=== PATIENT | male | born 1945 ===

== ENCOUNTER 2018-09-06 21:45 | Emergency (ER) | payer MEDICARE, MEDICAID ==
[2018-09-06 21:45] VITALS: BMI 27.2
[2018-09-06 21:54] VITALS: RESP 18
[2018-09-06 22:27] VITALS: BP 115/72; PULSE 76; TEMP 98.4; O2SAT 99
[2018-09-06] MEDS ORDERED: Albuterol-Ipratrop 3 mg / 0.5 (3 ml) UD INH STA (23:42)
[2018-09-06] MEDS ORDERED: Albuterol-Ipratrop 3 mg / 0.5 (3 ml) UD ONE (23:49)
[2018-09-07 00:41] LABS: BASO # 0.1 K/uL (0.0-0.2); BASO % 1.1 % (0.0-2.0); EOS # 0.6 K/uL (0.0-0.7); EOS % 7.4 % (0.0-4.0); HEMOGLOBIN 13.5 g/dL (12.0-18.0); LYMPH # 2.3 K/uL (1.0-4.3); MEAN CELL VOLUME 92.6 fl (80.0-94.0); MEAN CORPUSCULAR HEMOGLOBIN 30.9 pg (27.0-31.0); MEAN CORPUSCULAR HGB CONC 33.4 g/dL (33.0-37.0); MONO # 1.1 K/uL (0.0-0.8); MONO % 12.4 % (0.0-10.0); NEUT # 4.6 K/uL (1.8-7.0); NEUT % 53.1 % (50.0-75.0); NRBC % 0.1 % (0.0-0.0); RBC 4.36 Mil/uL (4.40-5.90); WHITE BLOOD COUNT 8.7 K/uL (4.8-10.8)
[2018-09-07 00:50] LABS: ALB/GLOB RATIO 1.2 (1.0-2.1); ALBUMIN 3.7 g/dL (3.5-5.0); ALT/SGPT 25 U/L (21-72); AST/SGOT 20 U/L (17-59); BLOOD UREA NITROGEN 19 mg/dl (9-20); CALCIUM 10.3 mg/dL (8.4-10.2); GFR NON-AFRICAN AMERICAN > 60
[2018-09-07] MEDS ORDERED: Albuterol-Ipratrop 3 mg / 0.5 (3 ml) UD ONE (00:52)
[2018-09-07 00:56] LABS: INR 1.1; PROTHROMBIN TIME 12.8 Seconds (9.8-13.1)
[2018-09-07 00:59] LABS: PARTIAL THROMBOPLASTIN TIME 30.8 Seconds (25.6-37.1)
[2018-09-07 01:01] LABS: B-TYPE NATRIURETIC PEPTIDE 80.2 pg/ml (0-900)
--- NOTE | 2018-09-07 02:19 | ED PDOC ---
HPI: CCC, URI, Sore Throat Time Seen by Provider: 09/06/18 22:56 Chief Complaint (Nursing): Cough, Cold, Congestion Chief Complaint (Provider): Cough, Cold, Congestion History Per: Patient History/Exam Limitations: no limitations Onset/Duration Of Symptoms: Persistent (x1 week) Current Symptoms Are (Timing): Still Present Additional Complaint(s): 72 year old male with pmHx of HTN and COPD, presents to ED with complaints of cough, productive green phlegm, congestion, and shortness of breath that becomes exacerbated at night for 1 week. He denies any fever or chills. Of note, patient smokes approximately 1-2 packs of cigarettes daily. PCP: none provided Pulm: Dr. Adal Hull Past Medical History Reviewed: Historical Data, Nursing Documentation, Vital Signs Vital Signs: Last Vital Signs Temp 98.4 F 09/06/18 21:51 Pulse 76 09/06/18 21:51 Resp 18 09/06/18 21:51 BP 115/72 09/06/18 21:51 Pulse Ox 99 09/06/18 21:51 - Medical History PMH: COPD, HTN Denies: Anxiety, Bipolar Disorder, Depression, Paranoia, Post Traumatic Stress Disorder, Chronic Kidney Disease, Schizophrenia - Surgical History Surgical History: Cholecystectomy - Family History Family History: States: Unknown Family Hx - Social History Current smoker - smoking cessation education provided: Yes (1-2 packs/daily) - Home Medications Home Medications: Ambulatory Orders Medication Instructions Recorded Meclizine HCl [Antivert/25] 25 mg PO Q8 #12 tab 06/22/14 Naproxen [Naprosyn] 500 mg PO Q12H #20 tab 06/22/14 Atorvastatin [Lipitor] 20 mg PO DAILY 06/23/14 Fluticasone/Salmeterol 250/50 1 puff IH DAILY 06/23/14 [Advair Diskus 250/50] Lisinopril 20 mg PO DAILY 06/23/14 Mometasone Furoate [Nasonex] 0.05 mg NS DAILY 06/23/14 Azithromycin [Zithromax] 250 mg PO DAILY #4 cap 06/24/14 Naproxen [Naprosyn] 500 mg PO BID #20 tab 06/24/14 Promethazine Hydrochloride 6.25 mg PO Q4 #120 ml 06/24/14 [Promethazine] Naproxen 500 mg PO Q12 #20 tab 10/02/14 Albuterol Sulfate [Proair Hfa] 0.09 mg IH Q6 PRN #1 inh 09/07/18 Benzonatate [Tessalon Perle] 100 mg PO TID PRN #15 capsule 09/07/18 Methylprednisolone [Medrol Dosepak] 4 mg PO ASDIR #1 pkg 09/07/18 - Allergies Allergies/Adverse Reactions: Allergies Allergy/AdvReac Type Severity Reaction Status Date / Time Penicillins Allergy RASH Verified 09/06/18 21:51 Review of Systems ROS Statement: Except As Marked, All Systems Reviewed And Found Negative Constitutional: Negative for: Fever, Chills ENT: Positive for: Nose Congestion Respiratory: Positive for: Cough, Shortness of Breath, Sputum (green) Physical Exam - Reviewed Nursing Documentation Reviewed: Yes Vital Signs Reviewed: Yes - Physical Exam Appears: Positive for: No Acute Distress Head Exam: Positive for: ATRAUMATIC, NORMAL INSPECTION, NORMOCEPHALIC Skin: Positive for: Normal Color Eye Exam: Positive for: Normal appearance, EOMI, PERRL ENT: Positive for: Normal ENT Inspection Neck: Positive for: Normal Cardiovascular/Chest: Positive for: Regular Rate, Rhythm Respiratory: Positive for: Wheezing (expiratory bilaterally). Negative for: Respiratory Distress Gastrointestinal/Abdominal: Positive for: Normal Exam, Soft. Negative for: Tenderness Extremity: Positive for: Normal ROM (upper/lower). Negative for: Pedal Edema (bilateral), Calf Tenderness (bilateral) Neurologic/Psych: Positive for: Alert, Oriented. Negative for: Motor/Sensory Deficits - Laboratory Results Result Diagrams: 09/07/18 00:25 09/07/18 00:25 - ECG O2 Sat by Pulse Oximetry: 99 (RA) Pulse Ox Interpretation: Normal Medical Decision Making Medical Decision Making: Initial Impression: 72 year old male with COPD exacerbation. Initial Plan: * Labs * CXR * Duoneb 9ml INH * Solu-medrol 125mg IVP * Blood culture * Influenza AB Time: 108 --Labs reviewed: no significant clinical abnormality including (-) influenza. CXR: (-) active disease. Upon provider reevaluation, patient is medically stable, reports improvement in symptoms, and requires no further treatment in the ED at this time. Patient will be discharged home with Rx for Proair HFA, Te ssalon Perle, and Medrol dosepak. Counseling was provided and all questions were answered regarding diagnosis. There is agreement to discharge plan. Return if symptoms persist or worsen. Clinical Impression: Bronchitis Scribe Attestation: Documented by Chikis Torres, acting as a scribe for Berlin Spicer MD. Provider Scribe Attestation: All medical record entries made by the Scribe were at my direction and personally dictated by me. I have reviewed the chart and agree that the record accurately reflects my personal performance of the history, physical exam, medical decision making, and the department course for this patient. I have also personally directed, reviewed, and agree with the discharge instructions and disposition. Disposition - Clinical Impression Clinical Impression: Bronchitis - Patient ED Disposition Is Patient to be Admitted: No Counseled Patient/Family Regarding: Studies Performed, Diagnosis, Rx Given - Disposition Disposition: Routine/Home Disposition Time: 01:09 Condition: STABLE Prescriptions: Albuterol Sulfate [Proair Hfa] 0.09 mg IH Q6 PRN #1 inh PRN Reason: Shortness Of Breath Benzonatate [Tessalon Perle] 100 mg PO TID PRN #15 capsule PRN Reason: Cough Methylprednisolone [Medrol Dosepak] 4 mg PO ASDIR #1 pkg Instructions: Acute Bronchitis Forms: [email or web address] ([place]) Print Language: SWAZI
--- NOTE | 2018-09-07 17:40 | RAD ---
Date of service: 09/06/2018 HISTORY: cough COMPARISON: Comparison chest 12/07/2012 TECHNIQUE: Chest PA and lateral FINDINGS: LUNGS: Poor inspiration with low lung volumes, crowded bronchovascular markings and mild bibasilar atelectasis. PLEURA: No significant pleural effusion identified. No pneumothorax apparent. CARDIOVASCULAR: No aortic atherosclerotic calcification present. Normal cardiac size. No pulmonary vascular congestion. OSSEOUS STRUCTURES: No significant abnormalities. VISUALIZED UPPER ABDOMEN: Normal. OTHER FINDINGS: None. IMPRESSION: Poor inspiration with low lung volumes, crowded bronchovascular markings and mild bibasilar atelectasis.
== END 2018-09-07 03:38 | disposition home or self-care (01) ==
LOC: H.ER 21:45
DX: J40 Bronchitis, not specified as acute or chronic (principal); F17.200 Nicotine dependence, unspecified, uncomplicated; I10 Essential (primary) hypertension; J44.1 Chronic obstructive pulmonary disease with (acute) exacerbation; Z88.0 Allergy status to penicillin
CPT/HCPCS: 71046; 80053; 83605; 83880; 84484; 85025; 85610; 85730; 87040; 87804; 96374; 99284; J2930

== ENCOUNTER 2018-09-15 02:16 | Emergency (ER) | payer MEDICARE, MEDICAID ==
[2018-09-15 02:16] VITALS: BMI 27.2
[2018-09-15 02:29] VITALS: BP 129/77; PULSE 88; RESP 16; TEMP 98.7; O2SAT 99
[2018-09-15] MEDS ORDERED: Albuterol-Ipratrop 3 mg / 0.5 (3 ml) UD INH STA (02:49)
[2018-09-15] MEDS ORDERED: Albuterol 0.083% Inhal Sol (2.5 mg/3 mL) UD INH STA (02:49)
--- NOTE | 2018-09-15 02:54 | ED PDOC ---
HPI: CCC, URI, Sore Throat Time Seen by Provider: 09/15/18 02:43 Chief Complaint (Nursing): Cough, Cold, Congestion Chief Complaint (Provider): Cough x 2 weeks History Per: Patient History/Exam Limitations: no limitations Have you had recent travel within the past 21 days to any of the following countries: [place], [place], [place] or [place]?: No Onset/Duration Of Symptoms: Persistent Associated Symptoms: Cough. denies: Sputum, Nausea, Vomiting, Diarrhea Additional History Per: Patient Additional Complaint(s): 73yo male with history of kidney stones, comes to ER reporting a dry cough x 2 weeks. Patient states he smokes a pack per day. Otherwise, he denies any fever, chills, chest pain, shortness of breath, abdominal pain, or vomiting. Patient did not take any medications prior to arrival. No other complaints. PMD: Jaycee Grijalva Past Medical History Reviewed: Historical Data, Nursing Documentation, Vital Signs Vital Signs: Last Vital Signs Temp 98.7 F 09/15/18 02:27 Pulse 88 09/15/18 02:27 Resp 16 09/15/18 02:27 BP 129/77 09/15/18 02:27 Pulse Ox 99 09/15/18 02:27 - Medical History PMH: COPD, HTN - Surgical History Surgical History: Cholecystectomy - Family History Family History: States: No Known Family Hx - Social History Current smoker - smoking cessation education provided: Yes SMOKER/PACKS PER DAY:: 1 - Home Medications Home Medications: Ambulatory Orders Medication Instructions Recorded Meclizine HCl [Antivert/25] 25 mg PO Q8 #12 tab 06/22/14 Naproxen [Naprosyn] 500 mg PO Q12H #20 tab 06/22/14 Atorvastatin [Lipitor] 20 mg PO DAILY 06/23/14 Fluticasone/Salmeterol 250/50 1 puff IH DAILY 06/23/14 [Advair Diskus 250/50] Mometasone Furoate [Nasonex] 0.05 mg NS DAILY 06/23/14 RX: Lisinopril 20 mg PO DAILY 06/23/14 Azithromycin [Zithromax] 250 mg PO DAILY #4 cap 06/24/14 Naproxen [Naprosyn] 500 mg PO BID #20 tab 06/24/14 Promethazine Hydrochloride 6.25 mg PO Q4 #120 ml 06/24/14 [Promethazine] RX: Naproxen 500 mg PO Q12 #20 tab 10/02/14 Albuterol Sulfate [Proair Hfa] 0.09 mg IH Q6 PRN #1 inh 09/07/18 Benzonatate [Tessalon Perle] 100 mg PO TID PRN #15 capsule 09/07/18 Methylprednisolone [Medrol Dosepak] 4 mg PO ASDIR #1 pkg 09/07/18 Albuterol Sulfate [Ventolin Hfa] 1 puff IH Q4 PRN #1 unit 09/15/18 Benzonatate [Tessalon Perles] 100 mg PO TID PRN #21 sgl 09/15/18 RX: Azithromycin [Z-Markos] 250 mg PO DAILY #6 tab 09/15/18 - Allergies Allergies/Adverse Reactions: Allergies Allergy/AdvReac Type Severity Reaction Status Date / Time Penicillins Allergy RASH Verified 09/06/18 21:51 Review of Systems ROS Statement: Except As Marked, All Systems Reviewed And Found Negative Constitutional: Negative for: Fever, Chills Respiratory: Positive for: Cough. Negative for: Sputum Gastrointestinal: Negative for: Nausea, Vomiting, Abdominal Pain Physical Exam - Reviewed Nursing Documentation Reviewed: Yes Vital Signs Reviewed: Yes - Physical Exam Appears: Positive for: Well, Non-toxic, No Acute Distress Head Exam: Positive for: NORMOCEPHALIC Skin: Positive for: Normal Color, Warm, Dry Eye Exam: Positive for: Normal appearance Neck: Positive for: Painless ROM, Supple Cardiovascular/Chest: Positive for: Regular Rate, Rhythm Respiratory: Positive for: Decreased Breath Sounds, Rhonchi (scattered). Negative for: Accessory Muscle Use, Rales, Wheezing, Respiratory Distress Gastrointestinal/Abdominal: Positive for: Soft. Negative for: Tenderness, Distended, Guarding Extremity: Positive for: Normal ROM. Negative for: Pedal Edema, Calf Tenderness Neurologic/Psych: Positive for: Alert, Oriented (x3), Gait (steady in ED). Negative for: Motor/Sensory Deficits, Aphasia, Facial Droop - ECG O2 Sat by Pulse Oximetry: 99 (RA) Pulse Ox Interpretation: Normal Medical Decision Making Medical Decision Making: Impression: 73y/o male with dry cough x 2 weeks Plan: -- Chest x-ray 2 views -- Duoneb 3ml INH -- Albuterol 2.5mg INH -- Azithromycin 500mg PO 0340 CXR: (+) perihilar thickening as read by Octavio ALLEN On re-evaluation, patient reports improvement of symptoms. On exam, patient remains AAOx3, in no acute distress. Lungs clear to auscultation, cardiac RRR, abdomen soft, non-tender, repeat neuro exam shows no focal findings. Vitals stable. Lab/Diagnostic results d/w the patient in great detail. Diagnosis of cough, bronchitis, tobacco abuse d/w the patient. Based on history, exam and diagnostic results, plan will be for outpatient follow up with PMD. Patient instructed to follow-up with pmd / referral provided / the clinic in 1- 2 days without fail. Advised to take medication as prescribed. Return to the emergency room at any time for any new or worsening symptoms. Patient states he fully agrees with and understands discharge instructions. States that he agrees with the plan and disposition. Verbalized and repeated discharge instructions and plan. I have given the patient opportunity to ask any additional questions. Scribe Attestation: Documented by Marlene Smyth, acting as a scribe for HANG Richard. Provider Scribe Attestation: All medical record entries made by the Scribe were at my direction and personally dictated by me. I have reviewed the chart and agree that the record accurately reflects my personal performance of the history, physical exam, medical decision making, and the department course for this patient. I have also personally directed, reviewed, and agree with the discharge instructions and disposition. Disposition - Clinical Impression Clinical Impression: Cough, Bronchitis, Tobacco abuse - Patient ED Disposition Is Patient to be Admitted: No Counseled Patient/Family Regarding: Studies Performed, Diagnosis, Need For Followup, Rx Given, Smoking Cessation - Disposition Referrals: Jaycee Grijalva MD [IM] - Disposition: Routine/Home Disposition Time: 03:45 Condition: STABLE Additional Instructions: The emergency medical care you received today was directed at your acute symptoms. If you were prescribed any medication, please fill it and take as directed. It may take several days for your symptoms to resolve. Return to the Emergency Department if your symptoms worsen, do not improve, or if you have any other problems. Please contact your doctor in 2 days for re-evaluation and follow up / or call one of the physicians/clinics you have been referred to that are listed on the Patient Visit Information form that is included in your discharge packet. Bring any paperwork you were given at discharge with you along with any medications you are taking to your follow up visit. Our treatment cannot replace ongoing medical care by a primary care provider (PCP) outside of the emergency department. Prescriptions: Albuterol Sulfate [Ventolin Hfa] 1 puff IH Q4 PRN #1 unit PRN Reason: Cough RX: Azithromycin [Z-Markos] 250 mg PO DAILY #6 tab Benzonatate [Tessalon Perles] 100 mg PO TID PRN #21 sgl PRN Reason: Cough Instructions: Cough in Adults, Quitting Smoking for Older Adults, Smoking: Not Just Harmful to Your Lungs and Heart, Acute Bronchitis Forms: [facility] ([place]) Print Language: GE[place]GIAN - POA Present On Arrival: None
[2018-09-15] MEDS ORDERED: Albuterol-Ipratrop 3 mg / 0.5 (3 ml) UD ONE (03:04)
[2018-09-15] MEDS ORDERED: Albuterol 0.083% Inhal Sol (2.5 mg/3 mL) UD ONE (03:04)
--- NOTE | 2018-09-15 14:16 | RAD ---
Date of service: 09/15/2018 HISTORY: cough x2 weeks, snokes 1ppd COMPARISON: Comparison chest 09/06/2018. TECHNIQUE: Chest PA and lateral FINDINGS: LUNGS: Poor inspiration with low lung volumes, crowded bronchovascular markings and mild bibasilar atelectasis. Developing infiltrates could be excluded with follow-up radiographs. PLEURA: No significant pleural effusion identified. No pneumothorax apparent. CARDIOVASCULAR: Minimal aortic atherosclerotic calcification present. Normal cardiac size. No pulmonary vascular congestion. OSSEOUS STRUCTURES: Minor multilevel degenerative spondylosis of the thoracic spine. VISUALIZED UPPER ABDOMEN: Normal. OTHER FINDINGS: None. IMPRESSION: Poor inspiration with low lung volumes, crowded bronchovascular markings and mild bibasilar atelectasis. Developing infiltrates could be excluded with follow-up radiographs.
== END 2018-09-15 03:56 | disposition home or self-care (01) ==
LOC: H.ER 02:16
DX: R05 Cough (principal); J40 Bronchitis, not specified as acute or chronic; F17.210 Nicotine dependence, cigarettes, uncomplicated; Z88.0 Allergy status to penicillin

== ENCOUNTER 2018-09-22 03:58 | Emergency (ER) | payer MEDICARE, MEDICAID ==
[2018-09-22 04:26] VITALS: BMI 28.6
[2018-09-22] MEDS ORDERED: Albuterol 0.083% Inhal Sol (2.5 mg/3 mL) UD INH ONE (04:59)
[2018-09-22] MEDS ORDERED: Albuterol 0.083% Inhal Sol (2.5 mg/3 mL) UD ONE (05:04)
--- NOTE | 2018-09-22 05:27 | ED PDOC ---
HPI: SOB/CHF/COPD Time Seen by Provider: 09/22/18 04:00 Chief Complaint (Nursing): Shortness Of Breath Chief Complaint (Provider): Shortness Of Breath History Per: Patient History/Exam Limitations: no limitations Onset/Duration Of Symptoms: Days (2 weeks) Current Symptoms Are (Timing): Still Present Additional Complaint(s): 73 year old male with PMHx of COPD and HTN presents to the ED for an evaluation of cough with yellow phlegm and shortness of breath onset for 2 weeks. Also reports of chills. Otherwise, he denies fever, abdominal pain or chest pain. Of note, patient was seen an ED and treated for bronchitis. PMD: Linda Grijalva Past Medical History Reviewed: Historical Data, Nursing Documentation, Vital Signs Vital Signs: Last Vital Signs Temp 97.8 F 09/22/18 04:31 Pulse 79 09/22/18 04:38 Resp 21 09/22/18 04:38 BP 126/69 09/22/18 04:38 Pulse Ox 93 L 09/22/18 04:38 - Medical History PMH: COPD, HTN Denies: Anxiety, Bipolar Disorder, Depression, Paranoia, Post Traumatic Stress Disorder, Chronic Kidney Disease, Schizophrenia - Surgical History Surgical History: Cholecystectomy - Family History Family History: States: Unknown Family Hx - Social History Current smoker - smoking cessation education provided: Yes (Pack of cigarettes a day ) Alcohol: Other (quit) Drugs: Denies - Home Medications Home Medications: Ambulatory Orders Medication Instructions Recorded Meclizine HCl [Antivert/25] 25 mg PO Q8 #12 tab 06/22/14 Naproxen [Naprosyn] 500 mg PO Q12H #20 tab 06/22/14 Atorvastatin [Lipitor] 20 mg PO DAILY 06/23/14 Fluticasone/Salmeterol 250/50 1 puff IH DAILY 06/23/14 [Advair Diskus 250/50] Mometasone Furoate [Nasonex] 0.05 mg NS DAILY 06/23/14 RX: Lisinopril 20 mg PO DAILY 06/23/14 Azithromycin [Zithromax] 250 mg PO DAILY #4 cap 06/24/14 Naproxen [Naprosyn] 500 mg PO BID #20 tab 06/24/14 Promethazine Hydrochloride 6.25 mg PO Q4 #120 ml 06/24/14 [Promethazine] RX: Naproxen 500 mg PO Q12 #20 tab 10/02/14 Albuterol Sulfate [Proair Hfa] 0.09 mg IH Q6 PRN #1 inh 09/07/18 Benzonatate [Tessalon Perle] 100 mg PO TID PRN #15 capsule 09/07/18 Methylprednisolone [Medrol Dosepak] 4 mg PO ASDIR #1 pkg 09/07/18 Albuterol Sulfate [Ventolin Hfa] 1 puff IH Q4 PRN #1 unit 09/15/18 Benzonatate [Tessalon Perles] 100 mg PO TID PRN #21 sgl 09/15/18 RX: Azithromycin [Z-Markos] 250 mg PO DAILY #6 tab 09/15/18 RX: Albuterol HFA [Ventolin HFA 90 1 - 2 puff IH Q4H PRN #1 bottle 09/22/18 mcg/actuation (8 g)] predniSONE [Prednisone] 40 mg PO DAILY #8 tab 09/22/18 - Allergies Allergies/Adverse Reactions: Allergies Allergy/AdvReac Type Severity Reaction Status Date / Time Penicillins Allergy RASH Verified 09/06/18 21:51 Review of Systems ROS Statement: Except As Marked, All Systems Reviewed And Found Negative Constitutional: Positive for: Chills. Negative for: Fever Cardiovascular: Negative for: Chest Pain Respiratory: Positive for: Cough, Shortness of Breath, Sputum Gastrointestinal: Negative for: Abdominal Pain Physical Exam - Reviewed Nursing Documentation Reviewed: Yes Vital Signs Reviewed: Yes - Physical Exam Appears: Positive for: Non-toxic, No Acute Distress Head Exam: Positive for: ATRAUMATIC, NORMAL INSPECTION, NORMOCEPHALIC Skin: Positive for: Normal Color, Warm, Dry Eye Exam: Positive for: EOMI, Normal appearance, PERRL ENT: Positive for: Normal ENT Inspection Neck: Positive for: Normal, Painless ROM, Supple. Negative for: Decreased ROM Cardiovascular/Chest: Positive for: Regular Rate, Rhythm. Negative for: Murmur Respiratory: Positive for: Rhonchi Gastrointestinal/Abdominal: Positive for: Normal Exam, Soft. Negative for: Tenderness Back: Positive for: Normal Inspection Extremity: Positive for: Normal ROM. Negative for: Tenderness, Pedal Edema, Deformity Neurologic/Psych: Positive for: Alert, Oriented (x3). Negative for: Motor/Sensory Deficits - ECG ECG: Positive for: Interpreted By Me, Viewed By Me ECG Rhythm: Positive for: Sinus Rhythm, Right Bundle Branch Block (consistent with prior EKGs) Rate: 82 O2 Sat by Pulse Oximetry: 93 (RA) Pulse Ox Interpretation: Normal Medical Decision Making Medical Decision Making: Time: 458 Initial Impression: cough sob r/o flu or pneumonia ro copd/ashtma Initial Plan: Albuterol 2.5mg Peak Flow Pre/Post TX Influenza A B Reevaluation EKbpm, normal sinus rhythm Patients serology is negative for Influenza Type A, B and his chest x-ray presents no abnormalities. His O2 stat is 97 and he was sleeping comfortably throughout the ED stay. Upon provider evaluation patient is medically stable, and requires no further treatment in the ED at this time. Patient will be discharged home. Counseling was provided and all questions were answered regarding diagnosis and need for follow up with doctor. There is agreement to discharge plan. Return if symptoms persist or worsen. Scribe Attestation: Documented by Guy Faye, acting as a scribe for Rebekah Drew MD Provider Scribe Attestation: All medical record entries made by the Scribe were at my direction and personally dictated by me. I have reviewed the chart and agree that the record accurately reflects my personal performance of the history, physical exam, medical decision making, and the department course for this patient. I have also personally directed, reviewed, and agree with the discharge instructions and disposition. Disposition - Clinical Impression Clinical Impression: COPD (chronic obstructive pulmonary disease) - Patient ED Disposition Is Patient to be Admitted: No Counseled Patient/Family Regarding: Studies Performed, Diagnosis, Rx Given - Disposition Disposition: Routine/Home Disposition Time: 07:18 Condition: STABLE Additional Instructions: follow up with your primary doctor dr guzman in 1-2 days return to the ED with any worsening or concerning symptoms Prescriptions: RX: Albuterol HFA [Ventolin HFA 90 mcg/actuation (8 g)] 1 - 2 puff IH Q4H PRN #1 bottle PRN Reason: Wheezing predniSONE [Prednisone] 40 mg PO DAILY #8 tab Instructions: Chronic Obstructive Pulmonary Disease (COPD), Including Emphysema Forms: [facility] (Polish)
[2018-09-22] MEDS ORDERED: Albuterol-Ipratrop 3 mg / 0.5 (3 ml) UD INH STA (06:18)
[2018-09-22 06:45] VITALS: RESP 20; TEMP 97.9
[2018-09-22 07:55] VITALS: BP 141/78
--- NOTE | 2018-09-22 11:01 | RAD ---
Date of service: 09/22/2018 HISTORY: cough COMPARISON: No prior. TECHNIQUE: Chest PA and lateral FINDINGS: LUNGS: Mild bibasilar fibrotic changes with possible discoid atelectasis/linear fibrosis at the left base. PLEURA: No significant pleural effusion identified. No pneumothorax apparent. CARDIOVASCULAR: Aortic calcifications. Normal cardiac size. No pulmonary vascular congestion. OSSEOUS STRUCTURES: No significant abnormalities. VISUALIZED UPPER ABDOMEN: Normal. OTHER FINDINGS: None. IMPRESSION: Mild bibasilar fibrotic changes with possible discoid atelectasis/linear fibrosis at the left base.
[2018-09-23 01:50] VITALS: PULSE 82; O2SAT 93
== END 2018-09-22 07:35 | disposition home or self-care (01) ==
LOC: H.ER 03:58
DX: J44.9 Chronic obstructive pulmonary disease, unspecified (principal); I10 Essential (primary) hypertension; Z88.0 Allergy status to penicillin

== ENCOUNTER 2018-09-27 01:44 | Emergency (ER) | payer MEDICARE, MEDICAID ==
[2018-09-27 01:45] VITALS: BMI 28.6
[2018-09-27] MEDS ORDERED: Magnesium Sulfate 2 gm/50 ml 2 GM/50 ML BAG IV STA (02:19)
[2018-09-27] MEDS ORDERED: Albuterol-Ipratrop 3 mg / 0.5 (3 ml) UD INH STA (02:19)
[2018-09-27] MEDS ORDERED: Albuterol-Ipratrop 3 mg / 0.5 (3 ml) UD ONE ×2 (02:23→02:24)
[2018-09-27] MEDS ORDERED: Magnesium Sulfate 2 gm/50 ml 2 GM/50 ML BAG ONE (02:24)
--- NOTE | 2018-09-27 02:36 | ED PDOC ---
HPI: SOB/CHF/COPD Time Seen by Provider: 09/27/18 02:07 Chief Complaint (Nursing): Cough, Cold, Congestion Chief Complaint (Provider): shortness of breath History Per: Patient History/Exam Limitations: no limitations Onset/Duration Of Symptoms: Persistent (x2 weeks) Current Symptoms Are (Timing): Still Present Additional Complaint(s): 73 year old male with pmHx of COPD, presents to ED with complaints of shortness of breath and dry cough for 2 weeks. Patient was seen in ED for similar symptoms on 09/15/18 and 09/22/18. He reports completing course of ABX and using his inhaler with minimal relief. Patient admits to persistent cigarette smoking at half a pack daily. He denies any fever or chills. PCP: Dr. Adal Hull Past Medical History Reviewed: Historical Data, Nursing Documentation, Vital Signs Vital Signs: Last Vital Signs Temp 98.2 F 09/27/18 02:05 Pulse 93 H 09/27/18 02:05 Resp 16 09/27/18 02:05 BP 157/82 H 09/27/18 02:05 Pulse Ox 98 09/27/18 02:05 - Medical History PMH: COPD, HTN Denies: Anxiety, Bipolar Disorder, Depression, Paranoia, Post Traumatic Stress Disorder, Chronic Kidney Disease, Schizophrenia - Surgical History Surgical History: Cholecystectomy - Family History Family History: States: Unknown Family Hx - Social History Current smoker - smoking cessation education provided: Yes (half pack/daily) - Home Medications Home Medications: Ambulatory Orders Medication Instructions Recorded Meclizine HCl [Antivert/25] 25 mg PO Q8 #12 tab 06/22/14 Naproxen [Naprosyn] 500 mg PO Q12H #20 tab 06/22/14 Atorvastatin [Lipitor] 20 mg PO DAILY 06/23/14 Fluticasone/Salmeterol 250/50 1 puff IH DAILY 06/23/14 [Advair Diskus 250/50] Lisinopril 20 mg PO DAILY 06/23/14 Mometasone Furoate [Nasonex] 0.05 mg NS DAILY 06/23/14 Azithromycin [Zithromax] 250 mg PO DAILY #4 cap 06/24/14 Naproxen [Naprosyn] 500 mg PO BID #20 tab 06/24/14 Promethazine Hydrochloride 6.25 mg PO Q4 #120 ml 06/24/14 [Promethazine] Naproxen 500 mg PO Q12 #20 tab 10/02/14 Albuterol Sulfate [Proair Hfa] 0.09 mg IH Q6 PRN #1 inh 09/07/18 Benzonatate [Tessalon Perle] 100 mg PO TID PRN #15 capsule 09/07/18 Methylprednisolone [Medrol Dosepak] 4 mg PO ASDIR #1 pkg 09/07/18 Albuterol Sulfate [Ventolin Hfa] 1 puff IH Q4 PRN #1 unit 09/15/18 Azithromycin [Z-Markos] 250 mg PO DAILY #6 tab 09/15/18 Benzonatate [Tessalon Perles] 100 mg PO TID PRN #21 sgl 09/15/18 Albuterol HFA [Ventolin HFA 90 1 - 2 puff IH Q4H PRN #1 bottle 09/22/18 mcg/actuation (8 g)] predniSONE [Prednisone] 40 mg PO DAILY #8 tab 09/22/18 Albuterol Sulfate [Proair Hfa] 0.09 mg IH Q6 PRN #1 inh 09/27/18 Benzonatate [Tessalon Perle] 100 mg PO TID PRN #15 capsule 09/27/18 predniSONE [predniSONE Tab] 60 mg PO QAM #12 tab 09/27/18 - Allergies Allergies/Adverse Reactions: Allergies Allergy/AdvReac Type Severity Reaction Status Date / Time Penicillins Allergy RASH Verified 09/27/18 02:10 Review of Systems ROS Statement: Except As Marked, All Systems Reviewed And Found Negative Constitutional: Negative for: Fever, Chills Respiratory: Positive for: Cough (dry), Shortness of Breath Physical Exam - Reviewed Nursing Documentation Reviewed: Yes Vital Signs Reviewed: Yes - Physical Exam Appears: Positive for: No Acute Distress, Uncomfortable Head Exam: Positive for: ATRAUMATIC, NORMAL INSPECTION, NORMOCEPHALIC Skin: Positive for: Normal Color Eye Exam: Positive for: Normal appearance, EOMI, PERRL ENT: Positive for: Normal ENT Inspection Neck: Positive for: Normal, Supple Cardiovascular/Chest: Positive for: Regular Rate, Rhythm, Chest Non Tender Respiratory: Positive for: Rhonchi (expiratory bilaterally), Wheezing (expiratory bilaterally), Respiratory Distress (mild) Gastrointestinal/Abdominal: Positive for: Normal Exam Back: Positive for: Normal Inspection Extremity: Positive for: Normal ROM (upper/lower) Neurologic/Psych: Positive for: Alert, Oriented - Laboratory Results Result Diagrams: 09/27/18 02:30 09/27/18 02:30 - ECG O2 Sat by Pulse Oximetry: 98 (RA) Pulse Ox Interpretation: Normal - Critical Care Total Time (In Min): 30 Documented Critical Care: Time excludes all time spent performint seperately billable procedures Medical Decision Making Medical Decision Making: Initial Impression: 73 year old male with shortness of breath in setting of COPD exacerbation. Initial Plan: * Labs * CXR * Duoneb 9ml INH * Magnesium sulfate 2gm in 50ml IV * Solu-Medrol 125mg IVP * Blood culture * Influenza AB Time: 0245 --CXR: no active disease noted on wet read. Time: 0410 --Labs reviewed: no significant clinical abnormality. Negative for influenza. Upon provider reevaluation, patient is medically stable, reports marketable improvement in symptoms, and requires no further treatment in the ED at this time. Patient will be discharged home. Counseling was provided and all questions were answered regarding diagnosis. There is agreement to discharge plan. Return if symptoms persist or worsen. Clinical Impression: COPD Scribe Attestation: Documented by Chikis Torres, acting as a scribe for Berlin Spicer MD. Provider Scribe Attestation: All medical record entries made by the Scribe were at my direction and personally dictated by me. I have reviewed the chart and agree that the record accurately reflects my personal performance of the history, physical exam, medical decision making, and the department course for this patient. I have also personally directed, reviewed, and agree with the discharge instructions and disposition. Disposition - Clinical Impression Clinical Impression: COPD (chronic obstructive pulmonary disease) - Patient ED Disposition Is Patient to be Admitted: No Counseled Patient/Family Regarding: Studies Performed, Diagnosis, Rx Given - Disposition Disposition: Routine/Home Disposition Time: 04:10 Condition: STABLE Prescriptions: Albuterol Sulfate [Proair Hfa] 0.09 mg IH Q6 PRN #1 inh PRN Reason: Shortness Of Breath Benzonatate [Tessalon Perle] 100 mg PO TID PRN #15 capsule PRN Reason: Cough predniSONE [predniSONE Tab] 60 mg PO QAM #12 tab Instructions: COPD Including Emphysema (DC) Forms: [employer] (Portuguese)
[2018-09-27 02:54] LABS: BASO # 0.1 K/uL (0.0-0.2); BASO % 0.9 % (0.0-2.0); EOS # 0.6 K/uL (0.0-0.7); EOS % 6.2 % (0.0-4.0); HEMOGLOBIN 13.2 g/dL (12.0-18.0); LYMPH # 2.5 K/uL (1.0-4.3); LYMPH % 24.4 % (20.0-40.0); MEAN CELL VOLUME 94.4 fl (80.0-94.0); MEAN CORPUSCULAR HEMOGLOBIN 31.2 pg (27.0-31.0); MEAN PLATELET VOLUME 7.4 fl (7.2-11.7); MONO # 1.1 K/uL (0.0-0.8); MONO % 10.4 % (0.0-10.0); NEUT % 58.1 % (50.0-75.0); RBC 4.24 Mil/uL (4.40-5.90); RED CELL DISTRIBUTION WIDTH 14.5 % (11.5-14.5); WHITE BLOOD COUNT 10.3 K/uL (4.8-10.8)
[2018-09-27 03:03] LABS: BLOOD UREA NITROGEN 29 mg/dl (9-20); CALCIUM 10.4 mg/dL (8.4-10.2); GFR NON-AFRICAN AMERICAN 54
[2018-09-27 05:51] VITALS: BP 153/89; PULSE 98; RESP 18; TEMP 98.1; O2SAT 97
--- NOTE | 2018-09-27 08:07 | RAD ---
Date of service: 09/27/2018 HISTORY: cough COMPARISON: Chest radiographs 09/22/2018. TECHNIQUE: Chest PA and lateral FINDINGS: LUNGS: Marked improvement in limited bilateral basilar infiltrates nearly completely resolved at both bases. PLEURA: No significant pleural effusion identified. No pneumothorax apparent. CARDIOVASCULAR: Calcific atherosclerotic changes are seen related to the thoracic aorta. Normal cardiac size. No pulmonary vascular congestion. OSSEOUS STRUCTURES: No significant abnormalities. VISUALIZED UPPER ABDOMEN: Normal. OTHER FINDINGS: None. IMPRESSION: Marked improvement in bilateral basilar infiltrates with trace residual at the bases.
== END 2018-09-27 05:57 | disposition home or self-care (01) ==
LOC: H.ER 01:44
DX: J44.1 Chronic obstructive pulmonary disease with (acute) exacerbation (principal); F17.210 Nicotine dependence, cigarettes, uncomplicated; I10 Essential (primary) hypertension; Z79.899 Other long term (current) drug therapy; Z88.0 Allergy status to penicillin
CPT/HCPCS: 71046; 80048; 83605; 85025; 87040; 87804; 94640; 96365; 96375; 99283; J2930

== ENCOUNTER 2018-10-07 23:44 | Emergency (ER) | payer MEDICARE, MEDICAID ==
[2018-10-07 23:44] VITALS: BMI 28.6
[2018-10-08 00:01] VITALS: TEMP 97.9
--- NOTE | 2018-10-08 00:45 | ED PDOC ---
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 Patient reports he was playing pool when pain started to worsen. PMD: Adal Hull Past Medical History Reviewed: Historical Data, Nursing Documentation, Vital Signs Vital Signs: Last Vital Signs Temp 97.9 F 10/07/18 23:57 Pulse 78 10/07/18 23:57 Resp 18 10/07/18 23:57 BP 151/74 H 10/07/18 23:57 Pulse Ox 98 10/07/18 23:57 - Medical History PMH: COPD, HTN Denies: Anxiety, Bipolar Disorder, Depression, Paranoia, Post Traumatic Stress Disorder, Chronic Kidney Disease, Schizophrenia Other PMH: Carpal tunnel syndrome - Surgical History Surgical History: Cholecystectomy - Family History Family History: States: Unknown Family Hx - Social History Current smoker - smoking cessation education provided: Yes Alcohol: None Drugs: Denies - Home Medications Home Medications: Ambulatory Orders Medication Instructions Recorded Meclizine HCl [Antivert/25] 25 mg PO Q8 #12 tab 06/22/14 Naproxen [Naprosyn] 500 mg PO Q12H #20 tab 06/22/14 Atorvastatin [Lipitor] 20 mg PO DAILY 06/23/14 Fluticasone/Salmeterol 250/50 1 puff IH DAILY 06/23/14 [Advair Diskus 250/50] Lisinopril 20 mg PO DAILY 06/23/14 Mometasone Furoate [Nasonex] 0.05 mg NS DAILY 06/23/14 Azithromycin [Zithromax] 250 mg PO DAILY #4 cap 06/24/14 Naproxen [Naprosyn] 500 mg PO BID #20 tab 06/24/14 Promethazine Hydrochloride 6.25 mg PO Q4 #120 ml 06/24/14 [Promethazine] Naproxen 500 mg PO Q12 #20 tab 10/02/14 Albuterol Sulfate [Proair Hfa] 0.09 mg IH Q6 PRN #1 inh 09/07/18 Benzonatate [Tessalon Perle] 100 mg PO TID PRN #15 capsule 09/07/18 Methylprednisolone [Medrol Dosepak] 4 mg PO ASDIR #1 pkg 09/07/18 Albuterol Sulfate [Ventolin Hfa] 1 puff IH Q4 PRN #1 unit 09/15/18 Azithromycin [Z-Amrkos] 250 mg PO DAILY #6 tab 09/15/18 Benzonatate [Tessalon Perles] 100 mg PO TID PRN #21 sgl 09/15/18 Albuterol HFA [Ventolin HFA 90 1 - 2 puff IH Q4H PRN #1 bottle 09/22/18 mcg/actuation (8 g)] predniSONE [Prednisone] 40 mg PO DAILY #8 tab 09/22/18 Albuterol Sulfate [Proair Hfa] 0.09 mg IH Q6 PRN #1 inh 09/27/18 Benzonatate [Tessalon Perle] 100 mg PO TID PRN #15 capsule 09/27/18 predniSONE [predniSONE Tab] 60 mg PO QAM #12 tab 09/27/18 Ibuprofen [Motrin Tab] 600 mg PO Q6 #30 tab 10/08/18 - Allergies Allergies/Adverse Reactions: Allergies Allergy/AdvReac Type Severity Reaction Status Date / Time Penicillins Allergy RASH Verified 09/27/18 02:10 Review of Systems ROS Statement: Except As Marked, All Systems Reviewed And Found Negative Musculoskeletal: Positive for: Hand Pain (Right with trigger finger), Other Physical Exam - Reviewed Nursing Documentation Reviewed: Yes Vital Signs Reviewed: Yes - Physical Exam Appears: Positive for: Non-toxic, No Acute Distress Head Exam: Positive for: ATRAUMATIC, NORMOCEPHALIC Skin: Positive for: Normal Color, Warm, Dry Extremity: Positive for: Tenderness (to palpation over distal radius on lateral volar surface), Other (Trigger finger of 3rd digit of right hand.) Neurologic/Psych: Positive for: Alert, Oriented (x3), Other (Right hand neurovascular intact) - ECG O2 Sat by Pulse Oximetry: 98 (RA) Pulse Ox Interpretation: Normal Medical Decision Making Medical Decision Makin A/P: exacerbation of carpal tunnel --Recommended NSAID --Refer for orthopedic Scribe Attestation: Documented by Saige Veliz, acting as a scribe for Kang Cano MD. Provider Scribe Attestation: All medical record entries made by the Scribe were at my direction and personally dictated by me. I have reviewed the chart and agree that the record accurately reflects my personal performance of the history, physical exam, medical decision making, and the department course for this patient. I have also personally directed, reviewed, and agree with the discharge instructions and disposition. Disposition - Clinical Impression Clinical Impression: Wrist pain - Disposition Referrals: Rene Rosales MD [Medical Doctor] - Disposition: Routine/Home Disposition Time: 01:13 Condition: STABLE Prescriptions: Ibuprofen [Motrin Tab] 600 mg PO Q6 #30 tab Instructions: Carpal Tunnel Syndrome Forms: [employer] (Ukrainian) Print Language: TELUGU
[2018-10-08 02:35] VITALS: BP 146/80; PULSE 72; RESP 17; O2SAT 99
== END 2018-10-08 02:03 | disposition home or self-care (01) ==
LOC: H.ER 23:44
DX: G56.01 Carpal tunnel syndrome, right upper limb (principal)

== ENCOUNTER 2018-10-22 20:52 | Emergency (ER) | payer MEDICARE, MEDICAID ==
[2018-10-22 20:53] VITALS: BMI 28.6
[2018-10-22 21:02] VITALS: BP 118/73; PULSE 101; RESP 18; TEMP 98.3; O2SAT 96
--- NOTE | 2018-10-22 21:52 | ED PDOC ---
Upper Extremity Pain/Injury Time Seen by Provider: 10/22/18 21:04 Chief Complaint (Nursing): Finger,Hand,&Wrist Chief Complaint (Provider): Right Arm Pain History Per: Patient History/Exam Limitations: no limitations Onset/Duration Of Symptoms: Intermittent Episodes (x7 years) Current Symptoms Are (Timing): Intermittent Episodes Additional Complaint(s): 73 year old male presents to the ED for evaluation of intermittent pain ranging from the fingers of his right hand up to his elbow. Patient states that at onset of symptoms, he was diagnosed with carpel tunnel of the right wrist and advised to get surgery, but he refused. He reports now that the pain is specifically on the palmar aspect of his right thumb, index finger, and middle finger radiating up to his elbow. Otherwise denies trauma, weakness, fever, and chills. PMD: SORAYA Past Medical History Reviewed: Historical Data, Nursing Documentation, Vital Signs Vital Signs: Last Vital Signs Temp 98.3 F 10/22/18 20:58 Pulse 101 H 10/22/18 20:58 Resp 18 10/22/18 20:58 BP 118/73 10/22/18 20:58 Pulse Ox 96 10/22/18 20:58 - Medical History PMH: COPD, HTN Denies: Anxiety, Bipolar Disorder, Depression, Paranoia, Post Traumatic Stress Disorder, Chronic Kidney Disease, Schizophrenia - Surgical History Surgical History: Cholecystectomy - Family History Family History: States: Unknown Family Hx - Social History Current smoker - smoking cessation education provided: Yes (heavy) Alcohol: None Drugs: Denies - Home Medications Home Medications: Ambulatory Orders Medication Instructions Recorded Meclizine HCl [Antivert/25] 25 mg PO Q8 #12 tab 06/22/14 Naproxen [Naprosyn] 500 mg PO Q12H #20 tab 06/22/14 Atorvastatin [Lipitor] 20 mg PO DAILY 06/23/14 Fluticasone/Salmeterol 250/50 1 puff IH DAILY 06/23/14 [Advair Diskus 250/50] Mometasone Furoate [Nasonex] 0.05 mg NS DAILY 06/23/14 RX: Lisinopril 20 mg PO DAILY 06/23/14 Azithromycin [Zithromax] 250 mg PO DAILY #4 cap 06/24/14 Naproxen [Naprosyn] 500 mg PO BID #20 tab 06/24/14 Promethazine Hydrochloride 6.25 mg PO Q4 #120 ml 06/24/14 [Promethazine] RX: Naproxen 500 mg PO Q12 #20 tab 10/02/14 Albuterol Sulfate [Proair Hfa] 0.09 mg IH Q6 PRN #1 inh 09/07/18 Benzonatate [Tessalon Perle] 100 mg PO TID PRN #15 capsule 09/07/18 Methylprednisolone [Medrol Dosepak] 4 mg PO ASDIR #1 pkg 09/07/18 Albuterol Sulfate [Ventolin Hfa] 1 puff IH Q4 PRN #1 unit 09/15/18 Benzonatate [Tessalon Perles] 100 mg PO TID PRN #21 sgl 09/15/18 RX: Azithromycin [Z-Markos] 250 mg PO DAILY #6 tab 09/15/18 RX: Albuterol HFA [Ventolin HFA 90 1 - 2 puff IH Q4H PRN #1 bottle 09/22/18 mcg/actuation (8 g)] predniSONE [Prednisone] 40 mg PO DAILY #8 tab 09/22/18 Albuterol Sulfate [Proair Hfa] 0.09 mg IH Q6 PRN #1 inh 09/27/18 Benzonatate [Tessalon Perle] 100 mg PO TID PRN #15 capsule 09/27/18 RX: predniSONE [predniSONE Tab] 60 mg PO QAM #12 tab 09/27/18 RX: Ibuprofen [Motrin Tab] 600 mg PO Q6 #30 tab 10/08/18 Tramadol HCl [Ultram] 50 mg PO BID PRN #4 tablet 10/22/18 - Allergies Allergies/Adverse Reactions: Allergies Allergy/AdvReac Type Severity Reaction Status Date / Time Penicillins Allergy RASH Verified 10/22/18 20:58 Review of Systems ROS Statement: Except As Marked, All Systems Reviewed And Found Negative Constitutional: Negative for: Fever, Chills Musculoskeletal: Positive for: Other (pain to right fingers up to elbow specifically on palmar aspect of thumb, index, and middle fingers) Neurological: Negative for: Weakness Physical Exam - Reviewed Nursing Documentation Reviewed: Yes Vital Signs Reviewed: Yes - Physical Exam Pulses-Radial (L): 2+ Pulses-Radial (R): 2+ Extremity: Positive for: Normal ROM (actively of right hand, wrist, elbow, and digits), Capillary Refill (less than 2 seconds in all digits of right hand). Negative for: Tenderness (or swelling, deformity, break in skin integrity, warmth, or erythema in right UE), Other (tinel's and phalen's signs of right UE) - ECG O2 Sat by Pulse Oximetry: 96 (RA) Pulse Ox Interpretation: Normal - Radiology X-Ray: Interpreted by Me (HAND X-RAY) X-Ray Interpretation: No Acute Disease Medical Decision Making Medical Decision Making: Time: 2118 Initial Impression: right arm pain Initial Plan: --Ultram 50mg PO --Right hand XR Scribe Attestation: Documented by Dayna Jefferson, acting as a scribe for Silviano Rose PA-C. Provider Scribe Attestation: All medical record entries made by the Scribe were at my direction and personally dictated by me. I have reviewed the chart and agree that the record accurately reflects my personal performance of the history, physical exam, medical decision making, and the department course for this patient. I have also personally directed, reviewed, and agree with the discharge instructions and disposition. Disposition - Clinical Impression Clinical Impression: Carpal tunnel syndrome - Patient ED Disposition Is Patient to be Admitted: No - Disposition Referrals: Rene Rosales MD [Medical Doctor] - Disposition: Routine/Home Disposition Time: 21:50 Condition: STABLE Additional Instructions: FOLLOW UP WITH DR. ROSALES (HAND SURGEON) FOR FURTHER EVALUATION RETURN TO ED IMMEDIATELY IF SYMPTOMS WORSEN INOCENCIA IRBY, thank you for letting us take care of you today. Your provider was Kang Cano MD and you were treated for RIGHT HAND PAIN. The emergency medical care you received today was directed at your acute symptoms. If you were prescribed any medication, please fill it and take as directed. It may take several days for your symptoms to resolve. Return to the Emergency Department if your symptoms worsen, do not improve, or if you have any other problems. Please contact your doctor or call one of the physicians/clinics you have been referred to that are listed on the Patient Visit Information form that is included in your discharge packet. Bring any paperwork you were given at discharge with you along with any medications you are taking to your follow up visit. Our treatment cannot replace ongoing medical care by a primary care provider outside of the emergency department. Thank you for allowing the [facility] team to be part of your care today. If you had an X-Ray or CT scan: A Radiologist will review the ED reading if any change in treatment is needed we will contact you. If you had a blood, urine, or wound culture: It will take several days for the results, if any change in treatment is needed we will contact you. If you had an STI test: It will take 48 hours for the results. Please call after 1 week if you have not heard back. Prescriptions: Tramadol HCl [Ultram] 50 mg PO BID PRN #4 tablet PRN Reason: PAIN Instructions: Carpal Tunnel Exercises Forms: [employer] (Lao) Print Language: CHINESE
--- NOTE | 2018-10-23 10:48 | RAD ---
PROCEDURE: Right Hand Radiographs. HISTORY: pain COMPARISON: None. FINDINGS: BONES: No fracture or lytic lesion. No erosions appreciated. Few scattered subcortical tiny arthropathic cyst noted- JOINTS: Diffuse joint space narrowing metacarpal and interphalangeal joint levels all digits. SOFT TISSUES: Normal. OTHER FINDINGS: None. IMPRESSION: Degenerative arthropathic changes diffuse throughout the hand. No erosions, lytic lesions or fractures noted.
== END 2018-10-22 22:08 | disposition home or self-care (01) ==
LOC: H.ER 20:52
DX: M79.601 Pain in right arm (principal); G56.00 Carpal tunnel syndrome, unspecified upper limb; F17.200 Nicotine dependence, unspecified, uncomplicated; I10 Essential (primary) hypertension; J44.9 Chronic obstructive pulmonary disease, unspecified; Z88.0 Allergy status to penicillin

== ENCOUNTER 2018-10-27 22:04 | Emergency (ER) | payer MEDICARE, MEDICAID ==
[2018-10-27 22:05] VITALS: BMI 28.6
[2018-10-27 22:17] VITALS: BP 127/68; PULSE 88; RESP 16; TEMP 98; O2SAT 97
[2018-10-27] MEDS ORDERED: Naproxen 500 MG TAB PO STA (22:29)
--- NOTE | 2018-10-27 22:33 | ED PDOC ---
Upper Extremity Pain/Injury Time Seen by Provider: 10/27/18 22:18 Chief Complaint (Nursing): Finger,Hand,&Wrist Chief Complaint (Provider): Right Hand/Wrist Pain History Per: Patient History/Exam Limitations: no limitations Onset/Duration Of Symptoms: Days (x2 weeks (acute on chronic)) Current Symptoms Are (Timing): Still Present Additional Complaint(s): 73 y/o male with a history of carpal tunnel syndrome to right hand presents to ER for evaluation of worsening of right hand pain x2 weeks. Patient reports he was seen in the past for the same and was advised to have surgery which he refused. Patient reports he was recently seen in this ED on 10/08/18 and 10/22/18 for the same complaint. Patient has not followed up with hand or ortho as directed. Patient took no medication prior to arrival in ED today. Pain is unchanged from flares in the past and is associated with paresthesias of the right 2nd and 3rd digits. No other complaints. Denies falls/trauma. Patient is right hand dominant. Symptoms worsen at night and with movement. PMD: Adal Hull Past Medical History Reviewed: Historical Data, Nursing Documentation, Vital Signs Vital Signs: Last Vital Signs Temp 98.0 F 10/27/18 22:14 Pulse 88 10/27/18 22:14 Resp 16 10/27/18 22:14 BP 127/68 10/27/18 22:14 Pulse Ox 97 10/27/18 22:14 - Medical History PMH: COPD, HTN - Surgical History Surgical History: Cholecystectomy - Family History Family History: States: Unknown Family Hx - Social History Current smoker - smoking cessation education provided: Yes (1ppd) Alcohol: None Drugs: Denies - Home Medications Home Medications: Ambulatory Orders Medication Instructions Recorded Meclizine HCl [Antivert/25] 25 mg PO Q8 #12 tab 06/22/14 Naproxen [Naprosyn] 500 mg PO Q12H #20 tab 06/22/14 Atorvastatin [Lipitor] 20 mg PO DAILY 06/23/14 Fluticasone/Salmeterol 250/50 1 puff IH DAILY 06/23/14 [Advair Diskus 250/50] Mometasone Furoate [Nasonex] 0.05 mg NS DAILY 06/23/14 RX: Lisinopril 20 mg PO DAILY 06/23/14 Azithromycin [Zithromax] 250 mg PO DAILY #4 cap 06/24/14 Naproxen [Naprosyn] 500 mg PO BID #20 tab 06/24/14 Promethazine Hydrochloride 6.25 mg PO Q4 #120 ml 06/24/14 [Promethazine] RX: Naproxen 500 mg PO Q12 #20 tab 10/02/14 Albuterol Sulfate [Proair Hfa] 0.09 mg IH Q6 PRN #1 inh 09/07/18 Benzonatate [Tessalon Perle] 100 mg PO TID PRN #15 capsule 09/07/18 Methylprednisolone [Medrol Dosepak] 4 mg PO ASDIR #1 pkg 09/07/18 Albuterol Sulfate [Ventolin Hfa] 1 puff IH Q4 PRN #1 unit 09/15/18 Benzonatate [Tessalon Perles] 100 mg PO TID PRN #21 sgl 09/15/18 RX: Azithromycin [Z-Markos] 250 mg PO DAILY #6 tab 09/15/18 RX: Albuterol HFA [Ventolin HFA 90 1 - 2 puff IH Q4H PRN #1 bottle 09/22/18 mcg/actuation (8 g)] predniSONE [Prednisone] 40 mg PO DAILY #8 tab 09/22/18 Albuterol Sulfate [Proair Hfa] 0.09 mg IH Q6 PRN #1 inh 09/27/18 Benzonatate [Tessalon Perle] 100 mg PO TID PRN #15 capsule 09/27/18 RX: predniSONE [predniSONE Tab] 60 mg PO QAM #12 tab 09/27/18 RX: Ibuprofen [Motrin Tab] 600 mg PO Q6 #30 tab 10/08/18 Tramadol HCl [Ultram] 50 mg PO BID PRN #4 tablet 10/22/18 Acetaminophen [Acetaminophen 8 650 mg PO Q8 PRN #21 tablet.er 10/27/18 Hour] Meloxicam [Mobic] 15 mg PO DAILY PRN #10 tab 10/27/18 - Allergies Allergies/Adverse Reactions: Allergies Allergy/AdvReac Type Severity Reaction Status Date / Time Penicillins Allergy RASH Verified 10/22/18 20:58 Review of Systems ROS Statement: Except As Marked, All Systems Reviewed And Found Negative Musculoskeletal: Positive for: Hand Pain (right) Physical Exam - Reviewed Nursing Documentation Reviewed: Yes Vital Signs Reviewed: Yes - Physical Exam Comments: Appears: Positive for: Non-toxic, No Acute Distress Head Exam: Positive for: ATRAUMATIC, NORMOCEPHALIC Skin: Positive for: Normal Color, Warm, Dry Neck: Supple Extremity: Positive for: Tenderness (to palpation over distal radius, volar surface), Other (Trigger finger of 3rd digit of right hand noted) Negative for: swelling, erythema, warmth, skin break. Respiratory: lungs clear to auscultation bilaterally, respirations even and nonlabored. Cardiac: Positive for: regular rate and rhythm. Neurologic/Psych: Positive for: Alert, Oriented (x3), Other (Right hand neurovascularly intact) - ECG O2 Sat by Pulse Oximetry: 97 (RA) Pulse Ox Interpretation: Normal Medical Decision Making Medical Decision Makin Initial Impression: acute exacerbation of carpal tunnel of right hand/wrist Plan: Acetaminophen 650mg PO Naproxen 500mg PO Re-evaluation 2315 On re-evaluation, patient reports improvement of symptoms. On exam, patient remains AAOx3, in no acute distress. Vitals stable. Lab/Diagnostic results d/w the patient in great detail. Diagnosis of carpal tunnel syndrome, right hand and wrist pain d/w the patient. Based on history, exam and diagnostic results, plan will be for outpatient follow up with ortho/hand. Patient instructed to follow-up with pmd / referral provided / the clinic in 1- 2 days without fail. Advised to take medication as prescribed. Return to the emergency room at any time for any new or worsening symptoms. Patient states he fully agrees with and understands discharge instructions. States that he agrees with the plan and disposition. Verbalized and repeated discharge instructions and plan. I have given the patient opportunity to ask any additional questions. Disposition - Clinical Impression Clinical Impression: Carpal tunnel syndrome of right wrist, Paresthesia of finger, Hand pain, right, Wrist pain - Patient ED Disposition Is Patient to be Admitted: No Counseled Patient/Family Regarding: Studies Performed, Diagnosis, Need For Followup, Rx Given - Disposition Referrals: Amy Burrell MD [Staff Provider] - Rene Rosales MD [Medical Doctor] - Disposition: Routine/Home Disposition Time: 23:15 Condition: STABLE Additional Instructions: La atencin mdica de emergencia que recibi hoy se dirigi a amelia sntomas agudos. Si le recetaron algn medicamento, llnelo y tmelo segn las indicaciones. Los sntomas pueden tardar varios todd en resolverse. Regrese al Departamento de Emergencias si amelia sntomas empeoran, no mejoran o si tiene otros problemas. Comunquese con humphrey mdico dentro de 2 todd para samantha nueva evaluacin y amna un seguimiento o llame a jennifer de los mdicos / clnicas a los que valente sido referido y que figuran en el formulario de Informacin de visita al paciente que se incluye en humphrey paquete de juli. Lleve todos los documentos que le entregaron al momento del juli junto con todos los medicamentos que est tomando para humphrey visita de seg uimiento. Nuestro tratamiento no puede reemplazar la atencin mdica continua por parte de un proveedor de atencin primaria (PCP) fuera del departamento de emergencias. Prescriptions: Acetaminophen [Acetaminophen 8 Hour] 650 mg PO Q8 PRN #21 tablet.er PRN Reason: Pain, Moderate (4-7) Meloxicam [Mobic] 15 mg PO DAILY PRN #10 tab PRN Reason: Pain, Moderate (4-7) Instructions: Carpal Tunnel Syndrome, Muscle and Bone Pain (DC), Paresthesias (DC), Common Wrist Injuries (DC), Hand Pain (DC), Carpal Tunnel Exercises Forms: [employer] (Amharic) Print Language: DANISH - POA Present On Arrival: None
[2018-10-27] MEDS ORDERED: Naproxen 500 MG TAB PO ONE (22:45)
== END 2018-10-27 23:25 | disposition home or self-care (01) ==
LOC: H.ER 22:04
DX: G56.01 Carpal tunnel syndrome, right upper limb (principal); R20.2 Paresthesia of skin; F17.210 Nicotine dependence, cigarettes, uncomplicated; I10 Essential (primary) hypertension; J44.9 Chronic obstructive pulmonary disease, unspecified; Z88.0 Allergy status to penicillin

== ENCOUNTER 2018-11-05 22:46 | Emergency (ER) | payer MEDICARE, MEDICAID ==
[2018-11-05 22:47] VITALS: BMI 28.6
[2018-11-05 22:55] VITALS: O2SAT 100
[2018-11-05] MEDS ORDERED: Sodium Chloride 0.9% 1,000 ML IV STA (23:26)
--- NOTE | 2018-11-05 23:29 | ED PDOC ---
HPI: Headache Time Seen by Provider: 11/05/18 22:56 Chief Complaint (Nursing): Headache Chief Complaint (Provider): Headache History Per: Patient History/Exam Limitations: no limitations Onset/Duration Of Symptoms: Hrs (x8) Additional Complaint(s): 73 y/o male with history of 2 previous strokes presents with headache onset since 15:00 and left sided arm numbness. Patient is unsure where the location of the previous strokes were and does not think he has any neurological deficits now or residual from his previous strokes. Patient denies dizziness, nausea or vomiting. Reports no loss of strength or sensation. NIHSS Stroke Scale - How Severe is the Stroke Level of Consciousness: 0=Alert LOC to Questions: 0=Both comments correct LOC to commands: 0=Obeys both correctly Best Gaze: 0=Normal Visual: 0=No visual loss Facial: 0=Normal Motor Arm - Left: 0=No drift Motor Arm - Right: 0=No drift Motor Leg - Left: 0=No drift Motor Leg - Right: 0=No drift Limb Ataxia: 1=Present Upper or Lower (right upper limb) Sensory: 0=Normal Best Language: 0=No aphasia Dysarthia: 0=Normal articulation Extinction & Inattention (Neglect): 0=Normal, no object Score: 1 Past Medical History Vital Signs: Last Vital Signs Temp 98.3 F 11/05/18 22:52 Pulse 82 11/05/18 22:52 Resp 18 11/05/18 22:52 BP 143/79 11/05/18 22:52 Pulse Ox 100 11/05/18 22:52 - Medical History PMH: COPD, HTN Denies: Anxiety, Bipolar Disorder, Depression, Paranoia, Post Traumatic Stress Disorder, Chronic Kidney Disease, Schizophrenia - Surgical History Surgical History: Cholecystectomy - Family History Family History: States: Unknown Family Hx - Home Medications Home Medications: Ambulatory Orders Medication Instructions Recorded Meclizine HCl [Antivert/25] 25 mg PO Q8 #12 tab 06/22/14 Naproxen [Naprosyn] 500 mg PO Q12H #20 tab 06/22/14 Atorvastatin [Lipitor] 20 mg PO DAILY 06/23/14 Fluticasone/Salmeterol 250/50 1 puff IH DAILY 06/23/14 [Advair Diskus 250/50] Mometasone Furoate [Nasonex] 0.05 mg NS DAILY 06/23/14 RX: Lisinopril 20 mg PO DAILY 06/23/14 Azithromycin [Zithromax] 250 mg PO DAILY #4 cap 06/24/14 Naproxen [Naprosyn] 500 mg PO BID #20 tab 06/24/14 Promethazine Hydrochloride 6.25 mg PO Q4 #120 ml 06/24/14 [Promethazine] RX: Naproxen 500 mg PO Q12 #20 tab 10/02/14 Albuterol Sulfate [Proair Hfa] 0.09 mg IH Q6 PRN #1 inh 09/07/18 Benzonatate [Tessalon Perle] 100 mg PO TID PRN #15 capsule 09/07/18 Methylprednisolone [Medrol Dosepak] 4 mg PO ASDIR #1 pkg 09/07/18 Albuterol Sulfate [Ventolin Hfa] 1 puff IH Q4 PRN #1 unit 09/15/18 Benzonatate [Tessalon Perles] 100 mg PO TID PRN #21 sgl 09/15/18 RX: Azithromycin [Z-Markos] 250 mg PO DAILY #6 tab 09/15/18 RX: Albuterol HFA [Ventolin HFA 90 1 - 2 puff IH Q4H PRN #1 bottle 09/22/18 mcg/actuation (8 g)] predniSONE [Prednisone] 40 mg PO DAILY #8 tab 09/22/18 Albuterol Sulfate [Proair Hfa] 0.09 mg IH Q6 PRN #1 inh 09/27/18 Benzonatate [Tessalon Perle] 100 mg PO TID PRN #15 capsule 09/27/18 RX: predniSONE [predniSONE Tab] 60 mg PO QAM #12 tab 09/27/18 RX: Ibuprofen [Motrin Tab] 600 mg PO Q6 #30 tab 10/08/18 Tramadol HCl [Ultram] 50 mg PO BID PRN #4 tablet 10/22/18 Acetaminophen [Acetaminophen 8 650 mg PO Q8 PRN #21 tablet.er 10/27/18 Hour] Meloxicam [Mobic] 15 mg PO DAILY PRN #10 tab 10/27/18 - Allergies Allergies/Adverse Reactions: Allergies Allergy/AdvReac Type Severity Reaction Status Date / Time Penicillins Allergy RASH Verified 11/05/18 22:52 Review of Systems ROS Statement: Except As Marked, All Systems Reviewed And Found Negative Gastrointestinal: Negative for: Nausea, Vomiting Neurological: Positive for: Numbness (left arm), Headache. Negative for: Dizziness Physical Exam - Reviewed Nursing Documentation Reviewed: Yes Vital Signs Reviewed: Yes - Physical Exam Appears: Positive for: Well, Non-toxic, No Acute Distress Head Exam: Positive for: ATRAUMATIC, NORMAL INSPECTION, NORMOCEPHALIC Skin: Positive for: Normal Color, Warm, DRY Eye Exam: Positive for: EOMI, Normal appearance, PERRL Neck: Positive for: Normal, Painless ROM Cardiovascular/Chest: Positive for: Regular Rate, Rhythm. Negative for: Murmur Respiratory: Positive for: Normal Breath Sounds. Negative for: Respiratory Distress Gastrointestinal/Abdominal: Positive for: Normal Exam, Soft. Negative for: Tenderness Back: Positive for: Normal Inspection Extremity: Positive for: Normal ROM, Other (5/5 strength all extremities). Negative for: Pedal Edema, Deformity Neurologic/Psych: Positive for: Alert, flatwork washer II-XII (intact), Oriented, Other (NIH Scale of 1: proprioception diminished in left arm ). Negative for: Motor/Sensory Deficits, Aphasia, Facial Droop - Laboratory Results Result Diagrams: 11/06/18 00:10 11/06/18 00:10 - ECG O2 Sat by Pulse Oximetry: 100 (RA) Pulse Ox Interpretation: Normal Medical Decision Making Medical Decision Making: Time: 22:58 MDM: Workup for stroke vs. headache Plan: * CT Brain * Labs * CXR * IV Fluids * Reglan and Toradol for headache symptoms * Reassess 01:53 Labs are unremarkable and vitals are within normal limits. Patient CT shows no acute changes; no signs of stroke. NIH stroke scale of 0 at this time. Patient states he feels comfortable going home. Patient is to follow up wiht his PMD in 1 week. Scribe Attestation: Documented by Jerry Laguna acting as a scribe for Jenna Goldberg MD. Provider Scribe Attestation: All medical record entries made by the Scribe were at my direction and personally dictated by me. I have reviewed the chart and agree that the record accurately reflects my personal performance of the history, physical exam, medical decision making, and the department course for this patient. I have also personally directed, reviewed, and agree with the discharge instructions and disposition. Disposition - Clinical Impression Clinical Impression: Headache - Disposition Disposition: Routine/Home Disposition Time: 01:53 Condition: IMPROVED Additional Instructions: Follow up with primary medical doctor in one to two weeks. Take medications as prescribed by primary doctor. Return to the emergency department if symptoms worsen or if new symptoms develop. Instructions: Headache, Adult (DC) Forms: [employer] (Belarusian), [facility] (Gabonese) Print Language: JAMAICAN
[2018-11-06 00:25] LABS: BASO % 0.4 % (0.0-2.0); EOS # 0.7 K/uL (0.0-0.7); EOS % 6.8 % (0.0-4.0); HEMOGLOBIN 13.4 g/dL (12.0-18.0); LYMPH # 2.5 K/uL (1.0-4.3); LYMPH % 25.3 % (20.0-40.0); MEAN CELL VOLUME 92.1 fl (80.0-94.0); MEAN CORPUSCULAR HEMOGLOBIN 30.3 pg (27.0-31.0); MEAN CORPUSCULAR HGB CONC 32.9 g/dL (33.0-37.0); MEAN PLATELET VOLUME 7.6 fl (7.2-11.7); MONO % 9.9 % (0.0-10.0); NEUT # 5.7 K/uL (1.8-7.0); NEUT % 57.6 % (50.0-75.0); RBC 4.41 Mil/uL (4.40-5.90); RED CELL DISTRIBUTION WIDTH 13.9 % (11.5-14.5); WHITE BLOOD COUNT 9.9 K/uL (4.8-10.8)
[2018-11-06 00:36] LABS: BLOOD UREA NITROGEN 21 mg/dl (9-20); CALCIUM 10.3 mg/dL (8.4-10.2); GFR NON-AFRICAN AMERICAN > 60
[2018-11-06 01:55] VITALS: BP 144/77; PULSE 68; RESP 15; TEMP 98.5
--- NOTE | 2018-11-06 07:53 | CT ---
Date of service: 11/05/2018 PROCEDURE: CT HEAD WITHOUT CONTRAST. HISTORY: head ache with left arm numbness COMPARISON: None available. TECHNIQUE: Axial computed tomography images were obtained through the head/brain without intravenous contrast. Radiation dose: Total exam DLP = 807.91 mGy-cm. This CT exam was performed using one or more of the following dose reduction techniques: Automated exposure control, adjustment of the mA and/or kV according to patient size, and/or use of iterative reconstruction technique. FINDINGS: HEMORRHAGE: No intracranial hemorrhage. BRAIN: Good corticomedullary differentiation is seen. Proportional, diffuse expansion of the ventriculosulcal and cisternal spaces is appreciated with white matter lucency compatible with diffuse cerebral atrophy and chronic microangiopathy. Cystic encephalomalacia is appreciate the right frontal greater than parietal segment of the right MCA distribution compatible with a chronic infarct. This involves the right basal ganglia minimally. No suspicious extra-axial fluid collection is identified and the midline brain anatomy appears grossly nonfocal as imaged. There is no mass effect throughout. VENTRICLES: Unremarkable. No hydrocephalus. CALVARIUM: Unremarkable. PARANASAL SINUSES: Unremarkable as visualized. No significant inflammatory changes. MASTOID AIR CELLS: Unremarkable as visualized. No inflammatory changes. OTHER FINDINGS: None. IMPRESSION: 1. No definitive acute intracranial findings by standard CT criteria. Follow-up CT or MRI are available if clinically warranted. 2. Chronic infarct right frontal parietal distribution with minimal involvement of the right basal ganglia.
--- NOTE | 2018-11-06 09:00 | CARD ---
APPROVED REPORT Date of service: 11/05/2018 EKG Measurement Heart [id number] <Conclusion> Normal sinus rhythm Right bundle branch block Abnormal ECG
== END 2018-11-06 02:14 | disposition home or self-care (01) ==
LOC: H.ER 22:46
DX: R51 Headache (principal); R20.2 Paresthesia of skin; I10 Essential (primary) hypertension; I45.10 Unspecified right bundle-branch block; J44.9 Chronic obstructive pulmonary disease, unspecified; Z86.73 Personal history of transient ischemic attack (TIA), and cerebral infarction without residual deficits; Z88.0 Allergy status to penicillin
CPT/HCPCS: 70450; 80048; 82948; 85025; 93005; 96374; 96375; 99285; J1885; J2765; J7030